=== PATIENT | male | born 1965 | race Caucasian/White ===

== ENCOUNTER 2021-03-13 07:00 | Day surgery (SDC) | payer BC ==
[2021-03-13] MEDS ORDERED: Diazepam 5 MG TAB ONE (07:42)
[2021-03-13 07:55] VITALS: BMI 28.4
[2021-03-13 07:56] VITALS: BP 131/88; TEMP 98.7
[2021-03-13 09:36] LABS: CSF Source CSF
[2021-03-13 09:37] LABS: Clarity Clear (Clear); Tube # 4
[2021-03-13 09:43] LABS: CSF, Glucose 51 mg/dl (40-70); CSF, Protein 33 mg/dL (15-40)
== END 2021-03-13 10:00 | disposition home or self-care (01) ==
LOC: RAD 07:00
PROVIDERS: ATTEND Internal Medicine Infectious Disease
PROC: 009U3ZX Drainage of Spinal Canal, Percutaneous Approach, Diagnostic (ICD-10-PCS; principal; 2021-03-13)
DX: M54.5 Low back pain (principal); R41.0 Disorientation, unspecified; R41.3 Other amnesia; H53.459 Other localized visual field defect, unspecified eye; Z21 Asymptomatic human immunodeficiency virus [HIV] infection status; Z79.899 Other long term (current) drug therapy; Z98.1 Arthrodesis status
CPT/HCPCS: 62270; 82945; 84157; 86592; 87899; 89051

== ENCOUNTER → 2021-03-20 | Day surgery (SDC) | payer BC ==
[~2021-03-20] MED LIST: Heparin 1,000 UNITS/ML VIAL ONE
== END ==
LOC: EEVIPCON 08:25 → SPEC 08:25
PROVIDERS: ATTEND Internal Medicine Infectious Disease
PROC: B518ZZA Fluoroscopy of Superior Vena Cava, Guidance (ICD-10-PCS; principal; 2021-03-20)
PROC: 02HV33Z Insertion of Infusion Device into Superior Vena Cava, Percutaneous Approach (ICD-10-PCS; principal; 2021-03-20)
DX: A52.3 Neurosyphilis, unspecified (principal)
CPT/HCPCS: 36569; C1751; J1644

== ENCOUNTER 2022-04-21 17:00 | Outpatient (CLI) | payer BC | END 2022-04-21 17:01 | disposition home or self-care (01) | LOC: SLEEPLAB 17:00 | PROVIDERS: ATTEND Family Medicine | DX: G47.33 Obstructive sleep apnea (adult) (pediatric) (principal); F32.9 Major depressive disorder, single episode, unspecified; F41.9 Anxiety disorder, unspecified; E66.9 Obesity, unspecified; I10 Essential (primary) hypertension; R06.83 Snoring; Z53.9 Procedure and treatment not carried out, unspecified reason | CPT/HCPCS: 95800 ==

== ENCOUNTER 2022-04-29 09:31 | Outpatient (CLI) | payer BC ==
[2022-04-29] MEDS ORDERED: ISOVUE-370 76% 1 ML ONE (15:17)
== END 2022-04-29 09:32 | disposition home or self-care (01) ==
LOC: BICCT 09:31
PROVIDERS: ATTEND Internal Medicine Infectious Disease
DX: R51.9 Headache, unspecified (principal)
CPT/HCPCS: 70470

== ENCOUNTER 2024-09-14 09:05 | Outpatient (CLI) | payer BC | END 2024-09-14 09:06 | disposition home or self-care (01) | LOC: SCSRAD 09:05 | PROVIDERS: ATTEND Nurse Practitioner Family | DX: R05.1 Acute cough (principal); R91.8 Other nonspecific abnormal finding of lung field | CPT/HCPCS: 71046 ==